=== PATIENT | female | born 1990 | race Hispanic/Latino ===

== ENCOUNTER 2022-02-16 12:08 | Emergency (ER) | payer MEDICAID ==
[~2022-02-16] VITALS: Ht 154.9 cm; Wt 68.0 kg
[2022-02-16] MEDS ORDERED: IBUPROFEN 800 MG TAB PO ONE (12:30)
[2022-02-16] MEDS ORDERED: FAMOTIDINE 20MG TAB PO ONE (12:30)
[2022-02-16 13:08] VITALS: BP 106/62
[2022-02-16 13:11] LABS: BASOPHILS % (AUTO) 0.7 % (0.0-5.0); EOSINOPHILS % (AUTO) 3.7 % (0.0-8.0); HEMATOCRIT 36.3 % (36-48); LYMPHOCYTES % (AUTO) 17.6 % (21.0-51.0); MEAN CORPUSCULAR HEMOGLOBIN 28.2 pg (27.0-33.0); MEAN CORPUSCULAR VOLUME 88.1 fL (79-99); MONOCYTES % (AUTO) 3.7 % (3.0-13.0); NEUTROPHILS % (AUTO) 74.1 % (40.0-77.0); PLATELET COUNT (AUTO) 289 K/uL (130-400); RED BLOOD CELL COUNT(AUTO) 4.12 MIL/uL (4.00-5.50); RED CELL DISTRIBUTION WIDTH 13.6 % (11.0-15.5)
[2022-02-16 13:20] LABS: INR 0.93 (0.85-1.15); PROTHROMBIN TIME 9.9 SEC (9.6-11.6)
[2022-02-16 13:21] LABS: PARTIAL THROMBOPLASTIN TIME 25.2 SEC (26.3-35.5)
== END 2022-02-16 13:52 | disposition home or self-care (01) ==
LOC: EDH 12:08
DX: S40.021A Contusion of right upper arm, initial encounter (principal); Z88.2 Allergy status to sulfonamides; Z88.1 Allergy status to other antibiotic agents; Z79.1 Long term (current) use of non-steroidal anti-inflammatories (NSAID); X58.XXXA Exposure to other specified factors, initial encounter; Y93.89 Activity, other specified; Y92.89 Other specified places as the place of occurrence of the external cause; Y99.8 Other external cause status
CPT/HCPCS: 36415; 73070; 85025; 85610; 85730

== ENCOUNTER 2022-05-18 13:15 | Emergency (ER) | payer MEDICAID, OTHER ==
[~2022-05-18] VITALS: Ht 167.6 cm; Wt 63.5 kg
[2022-05-18 13:18] VITALS: BP 119/73
[2022-05-18] MEDS ORDERED: ACETAMINOPHEN 500 MG TABLET PO ONE (14:00)
[2022-05-18] MEDS ORDERED: GUAIFENESIN-DM 200/20 MG 10 ML PO ONE (14:00)
[2022-05-18] MEDS ORDERED: IBUP-2070 PO (14:15)
[2022-05-18] MEDS ORDERED: D-ME1POW16 PO (14:15)
== END 2022-05-18 14:52 | disposition home or self-care (01) ==
LOC: EDH 13:15
DX: J06.9 Acute upper respiratory infection, unspecified (principal); Z20.822 Contact with and (suspected) exposure to COVID-19
CPT/HCPCS: 99283; 87635; 87880; 87804 ×2; C9803

== ENCOUNTER 2022-09-24 19:32 | Emergency (ER) | payer BC, OTHER ==
[~2022-09-24] VITALS: Ht 154.9 cm; Wt 60.8 kg
[~2022-09-24 19:32] MED LIST: D-ME1POW16 PO; IBUP-2070 PO
[2022-09-24 19:34] VITALS: BP 130/77
[2022-09-24] MEDS ORDERED: IBUPROFEN 600 MG TABLET PO ONE (20:30)
[2022-09-24] MEDS ORDERED: BENZONATATE 100 MG CAPSULE PO SCH (20:30)
[2022-09-24 21:27] LABS: APPEARANCE,URINE CLEAR (CLEAR); BILIRUBIN,URINE NEGATIVE (NEGATIVE); COLOR,URINE YELLOW (YELLOW); GLUCOSE, URINE (UA) NEGATIVE (NEGATIVE); HCG,QUALITATIVE URINE NEGATIVE (NEGATIVE); KETONES,URINE 5 mg/dL (NEGATIVE); LEUKOCYTE ESTERASE ,URINE 75 Leu/uL (NEGATIVE); NITRATE,URINE NEGATIVE (NEGATIVE); OCCULT BLOOD,URINE NEGATIVE (NEGATIVE); PH,URINE 5.5 (5.0-8.0); PROTEIN,URINE 10 mg/dL (NEGATIVE)
[2022-09-24 21:35] LABS: BACTERIA,URINE FEW /HPF (None Seen); MUCUS,URINE RARE LPF (None Seen); SQUAMOUS EPITHELIAL CELL,UR FEW /HPF (0-2); YEAST,URINE BUDDING FEW /HPF (None Seen)
[2022-09-24] MEDS ORDERED: BENZ-39 PO (22:02)
[2022-09-24] MEDS ORDERED: IBUP-2070 PO (22:02)
[2022-09-24] MEDS ORDERED: CEPH500B PO (22:02)
[2022-09-24] MEDS ORDERED: P-EP-94 PO (22:02)
== END 2022-09-24 22:09 | disposition home or self-care (01) ==
LOC: EDH 19:32
DX: J06.9 Acute upper respiratory infection, unspecified (principal); N39.0 Urinary tract infection, site not specified; Z79.1 Long term (current) use of non-steroidal anti-inflammatories (NSAID); Z88.1 Allergy status to other antibiotic agents; Z88.2 Allergy status to sulfonamides; Z20.822 Contact with and (suspected) exposure to COVID-19
CPT/HCPCS: 99283; 87635; 87077; 87088; 87186; 87880; 87804 ×2; 81001; 81025; C9803